=== PATIENT | male | born 1975 ===

== ENCOUNTER → 2016-04-29 | Day surgery (SDC) | payer OTHER ==
[~2016-04-29] VITALS: Ht 185.4 cm; Wt 86.2 kg
[~2016-04-29] MED LIST: Bupivacaine 0.5% Inj 30 ml vial INJ ONE; Dexamethasone Inj PF*Surgery use* 10 MG/ML VIAL IV ONE; NKM
--- NOTE | 2016-04-29 09:39 | Pre-Procedure Note/Attestation ---
Pre-Procedure Note/Attestation Complete Prior to Procedure Planned Procedure: not applicable Procedure Narrative: Cervical epidural steroid injection under fluoroscopic guidance. Indications for Procedure Pre-Operative Diagnosis: Cervical disc displacement Attestation I attest that I discussed the nature of the procedure; its benefits; risks and complications; and alternatives (and the risks and benefits of such alternatives ), prior to the procedure, with the patient (or the patient's legal business process representative). I attest that, if there was a reasonable possibility of needing a blood transfusion, the patient (or the patient's legal business process representative) was given the [facility] standardized written summary, pursuant to the [place] Blood Safety Act ([place] Health and Safety Code # 1645, as amended). I attest that I re-evaluated the patient just prior to the surgery and that there has been no change in the patient's H&P, except as documented below: LORENA CHAVEZ M.D. Apr 29, 2016 09:39
[2016-04-29 09:56] VITALS: BP 123/74
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
[2016-04-29 11:35] VITALS: BP 127/82
--- NOTE | 2016-05-06 11:57 | Brief Operative Note ---
Immediate Post Operative Note Operative Note Chief Complaint: 04/29/2016 Pre-op Diagnosis: Cervical disc displacement Procedure: Cervical epidural steroid injection under fluoroscopic guidance. Post-op Diagnosis: Cervical disc displacement Post-op Diagnosis: same as pre-op Findings: consistent w/pre-op dx studies Surgeon: Lorena Rene MD Restaurant Associate: none Additional Surgeons: none Anesthesiologist: none Anesthesia: local Specimen: none Complications: none Condition: stable Fluids: none Estimated Blood Loss: none Drains: none Packing: none Tourniquet time: 0 - min Implant(s) used?: LORENA Galan M.D. May 06, 2016 11:57
--- NOTE | 2016-05-06 12:00 | Discharge Summary ---
Discharge Summary Hospital Course Date of Admission 04/29/2016 Date of Discharge 04/29/2016 Admitting Diagnosis Cervical disc displacement Reason for Hospitalization: short stay HPI Marino Chatman is a 40 year old male who was admitted on for Cervical Disc W/ Herniation ;Radiculopathy Consultations none Procedures Cervical Disc Displacement Hospital Course short stay Discharge Condition Upon Discharge: stable Discharge Disposition Patient was discharged to home. Discharge Diagnoses: (1) Cervical disc disorder Discharge Instructions Discharge Instructions Follow up with: Dr. Lorena Chavez Diet: regular Activity: okay to shower For Surgical Patients Dressing Care: may change May shower: Yes Contact your physician for: bleeding, pain, tenderness, redness, swelling, yellowish discharge in the op. site LORENA CHAVEZ M.D. May 06, 2016 12:00
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
== END | disposition home or self-care (01) ==
LOC: SUR 09:11
DX: M50.10 Cervical disc disorder with radiculopathy, unspecified cervical region (principal)
CPT/HCPCS: 62321; 77003; J3490; 62320